=== PATIENT | male | born 1960 | race Caucasian/White ===

== ENCOUNTER → 2018-12-13 | Outpatient (CLI) | payer OTHER, SELFPAY ==
[2018-12-13 08:36] VITALS: BMI 26.4
--- NOTE | 2018-12-13 08:37 | RAD_ITS ---
STUDY: X-RAY - PELVIS AND RIGHT HIP REASON FOR EXAM: Right groin pain. TECHNIQUE: 2 views of the pelvis and hip. COMPARISON: None. FINDINGS: There is vascular calcification and pelvic phleboliths. Normal bilateral iliac wings, sacroiliac joints and visualized sacrum. Normal bilateral superior and inferior pubic rami. Normal pubic symphysis. Normal bilateral ischial tuberosities. Normal visualized right femoral head. There is a right os acetabula. Normal right hip joint. There is a suspected central intra-articular body in the contralateral left hip. RAD/HIP, UNI W/ Pelvis 2-3 Views IMPRESSION: Os acetabula. Otherwise, unremarkable x-ray examination of the right hip. Electronically Signed: Bharath Oro MD at 10:48 EDT Tel , Service support ,
== END | disposition home or self-care (01) ==
LOC: HPRAD 08:37
PROVIDERS: Referring Provider Orthopaedic Surgery; Visit Provider Orthopaedic Surgery
DX: R10.31 Right lower quadrant pain (principal)
CPT/HCPCS: 73502